=== PATIENT | female | born 1975 | race Caucasian/White ===

== ENCOUNTER 2018-11-27 12:27 | Emergency (ER) | payer BC, OTHER ==
[~2018-11-27] VITALS: Ht 167.6 cm; Wt 59.0 kg
[~2018-11-27 12:27] MED LIST: AZIT-21 PO; B12 INJECTION IM; B12 PO; CALC-196 PO; HYDR1TAB66 PO; LORA1TAB PO; MULT-608 PO
--- OUTSIDE RECORDS SUMMARY | 2018-11-27 12:33 | XMS REPORT ---
Author Author MERRICK AVILA [facility] Address [address] [place] [address] Care Team Providers Care Chief Medical Technologist Name Role Phone MERRICK AVILA Unavailable PROBLEMS Type Condition ICD9-CM Code QNU17-TL Code Onset Dates Condition Status SNOMED Code Problem Cellulitis 682.9 Mar, 0 786576841 Problem CHF (congestive heart failure) 428.0 Jan, 0 29036123 Problem Tobacco use 305.1 Apr, 0 877744240 Problem Unspecified essential hypertension 401.9 0 86791278 Problem Early satiety 780.94 Mar, 0 919933986 Problem Tobacco use Z72.0 Apr, 0 292469945 Problem CHF (congestive heart failure) I50.9 Jan, 0 57120765 Problem 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 Jan, 0 Problem Anastomotic stricture of gastrojejunostomy 997.49 Jan, 0 48367803 Problem Pelvic pain in female 625.9 Sep, 0 832019478 Problem Status post gastric bypass for obesity V45.86 Jul, 0 858032834 Problem Postop check Z09 October, 0 427380031 Problem Cellulitis L03.90 Mar, 0 097668813 Problem Status post gastric bypass for obesity Z98.84 Jul, 0 225729336 Problem Cigarette nicotine dependence, uncomplicated F17.210 Apr, 0 530931656 Problem Deep postoperative wound infection T81.42XA Dec, 0 Problem Deep postoperative wound infection 998.59 Dec, 0 37303974 Problem 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 Dec, 0 603953543 Problem Pleomorphic adenoma of parotid gland 210.2 Dec, 0 626162439 Problem Ovarian torsion 620.5 Sep, 0 33093410 Problem Ovarian torsion N83.519 Sep, 0 98159418 Problem Postop check V67.00 October, 0 344957461 Problem Essential hypertension I10 Active 75210026 Problem Pelvic pain in female R10.2 Sep, 0 006704886 Problem Other chronic pain G89.29 Active 56537795 Problem Early satiety R68.81 Mar, 0 334359592 Problem Unspecified essential hypertension I10 0 04709681 Problem Cigarette nicotine dependence, uncomplicated 305.1 Apr, 0 587643263 Problem Chronic congestive heart failure, unspecified heart failure type I50.9 Active 12340136 Problem Gastric ulcer, unspecified chronicity, unspecified whether gastric ulcer hemorrhage or perforation present K25.9 Active 974293810 Problem Insomnia, unspecified type G47.00 Active [id number] ALLERGIES Substance Reaction Event Type Date Status Solu-Medrol hives Drug Allergy Aug, Active Flovent HFA swelling Drug Allergy Aug, Active servent swelling Non Drug Allergy Aug, Active ENCOUNTERS Encounter Location Date Diagnosis [address] [address] Aug, Essential hypertension I10 ; Gastric ulcer, unspecified chronicity, unspecified whether gastric ulcer hemorrhage or perforation present K25.9 ; Chronic congestive heart failure, unspecified heart failure type I50.9 ; Insomnia, unspecified type G47.00 ; Other chronic pain G89.29 and Low back pain M54.[address] [address] Jul, [address] [address] Jul, [address] [address] Jul, [facility] [address] [facility] [id number] [place] [address] May, [facility] [id number] [place] [address] May, [facility] [id number] [place] [address] May, [facility] [id number] [place] [address] Apr, [facility] [address] [facility] [id number] [place] [address] Dec, IMMUNIZATIONS No Known Immunizations SOCIAL HISTORY Never Assessed REASON FOR VISIT establish care. needs refill medications. [facility] PLAN OF CARE Activity Details Follow Up 4 Weeks with labs Reason: VITAL SIGNS Height 64 in 2018-08-20 Weight 154 lbs 2018-08-20 Temperature 98.6 degrees Fahrenheit 2018-08-20 Heart Rate 78 bpm 2018-08-20 Respiratory Rate 18 2018-08-20 BMI 26.43 kg/m2 2018-08-20 Blood pressure systolic 120 mmHg 2018-08-20 Blood pressure diastolic 80 mmHg 2018-08-20 MEDICATIONS Medication Instructions Dosage Frequency Start Date End Date Duration Status Xanax 1 MG Orally 2 times a day 1 tablet 12h Jul, 28 days Active Cyanocobalamin 1000 MCG/ML INJECT ONE ML INTRAMUSCULARLY EVERY 7 DAYS 28 Active Klor-Con 10 10 MEQ Orally daily on days that you take lasix 1 tablet with food 30 day(s) Active Tramadol HCl 50 MG Orally 3 times a day as needed 1 tablet Aug, 28 days Active Furosemide 40 MG Orally Once a day as needesd 1 tablet 30 day(s) Active Dicyclomine HCl 20 MG Orally 3 times a day 1 tablet 8h 30 days Active Sucralfate 1 GM Orally 4 times a day as needed 1 tablet on an empty stomach 30 day(s) Active RESULTS No Results PROCEDURES No Known procedures INSTRUCTIONS MEDICATIONS ADMINISTERED No Known Medications MEDICAL (GENERAL) HISTORY Type Description Date Medical History Hypertension Medical History CHF (congestive heart failure) Medical History pleomorphic adenoma of parotid gland Hospitalization History surgeries Hospitalization History pneumonia
[2018-11-27] MEDS ORDERED: FAMOTIDINE 20MG/2ML IV (PEPCID) IV STA (13:23)
[2018-11-27] MEDS ORDERED: LACTATED RINGERS 1,000 ML IV STA (13:23)
[2018-11-27] MEDS ORDERED: ANTACID SUSP 30 ML UDC (MYLANTA) PO ONE (13:30)
[2018-11-27] MEDS ORDERED: LIDOCAINE 2% VISCOUS 15 ML UDC PO ONE (13:30)
[2018-11-27 13:42] LABS: BASOPHILS % (AUTO) 1 % (0-10); EOSINOPHILS # (AUTO) 0.3 10^3/uL (0.0-0.3); EOSINOPHILS % (AUTO) 4 % (0-10); HEMATOCRIT 39 % (35-52); HEMOGLOBIN 11.8 G/DL (11.5-16.0); LYMPHOCYTES # (AUTO) 1.8 X 10^3 (1.0-4.0); LYMPHOCYTES % (AUTO) 22 % (12-44); MEAN CORPUSCULAR HEMOGLOBIN 25 PG (25-34); MEAN CORPUSCULAR HGB CONC 31 G/DL (32-36); MEAN CORPUSCULAR VOLUME 83 FL (80-99); MEAN PLATELET VOLUME 11.7 FL (7.4-10.4); MONOCYTES # (AUTO) 0.5 X 10^3 (0.0-1.0); MONOCYTES % (AUTO) 6 % (0-12); NEUTROPHILS # (AUTO) 5.5 X 10^3 (1.8-7.8); NEUTROPHILS % (AUTO) 68 % (42-75); PLATELET COUNT 248 10^3/uL (130-400); RED CELL DISTRIBUTION WIDTH 14.5 % (10.0-14.5); WHITE BLOOD COUNT 8.1 10^3/uL (4.3-11.0)
[2018-11-27 13:55] LABS: ALANINE AMINOTRANSFERASE 12 U/L (0-55); ALBUMIN 3.9 GM/DL (3.2-4.5); ALKALINE PHOSPHATASE 94 U/L (40-136); BILIRUBIN,TOTAL 0.2 MG/DL (0.1-1.0); BUN/CREATININE RATIO 11; CALCIUM 9.2 MG/DL (8.5-10.1); CARBON DIOXIDE 25 MMOL/L (21-32); CHLORIDE 108 MMOL/L (98-107); GFR ESTIMATED > 60; GLUCOSE 93 MG/DL (70-105); MAGNESIUM 2.2 MG/DL (1.8-2.4); POTASSIUM 4.3 MMOL/L (3.6-5.0); SODIUM 143 MMOL/L (135-145); TOTAL PROTEIN 6.9 GM/DL (6.4-8.2)
[2018-11-27 14:38] LABS: BILIRUBIN,URINE NEGATIVE (NEGATIVE); CLARITY,URINE CLEAR; COLOR,URINE YELLOW; GLUCOSE, URINE (UA) NEGATIVE (NEGATIVE); KETONES,URINE NEGATIVE (NEGATIVE); LEUKOCYTE ESTERASE ,URINE NEGATIVE (NEGATIVE); NITRITE,URINE NEGATIVE (NEGATIVE); PH,URINE 7 (5-9); PROTEIN,URINE NEGATIVE (NEGATIVE); UROBILINOGEN,URINE NORMAL (NORMAL)
[2018-11-27 14:49] LABS: BACTERIA,URINE NEGATIVE /HPF; SQUAMOUS EPITHELIAL CELL,UR 0-2 /HPF
[2018-11-27] MEDS ORDERED: NS 100 ML (IVPB) BAG IV ONE (15:15)
[2018-11-27] MEDS ORDERED: IOHEXOL 350 MG/ML 100 ML (OMNIPAQUE 350) VIAL IV ONE (15:15)
[2018-11-27] MEDS ORDERED: HOLD METFORMIN - RECEIVED CONTRAST 20 ML VIAL IV SCH (15:15)
--- NOTE | 2018-11-27 16:27 | Diagnostic Imaging Report ---
PROCEDURE: CT abdomen and pelvis with contrast. TECHNIQUE: Multiple contiguous axial images were obtained through the abdomen and pelvis after administration of intravenous contrast. Auto Exposure Controls were utilized during the CT exam to meet ALARA standards for radiation dose reduction. INDICATION: Abdominal pain. Nausea and vomiting. History of gastric bypass. COMPARISON: CT abdomen and pelvis without and with IV contrast 01/27/2011. FINDINGS: Lung bases are clear. Cholecystectomy. Postoperative findings of gastric bypass. Fatty infiltration along the falciform ligament. The pancreas, spleen, adrenals, kidneys, collecting systems and bladder are negative. Normal appendix. Moderate colonic diverticulosis. No evidence of active diverticulitis. No free intraperitoneal air or fluid. No lymphadenopathy. No evidence of bowel obstruction. Hysterectomy. Moderate atherosclerotic calcifications including the normal caliber abdominal aorta. Chronic L5 pars defects. No acute osseous findings. IMPRESSION: 1. No acute CT findings in the abdomen or pelvis. 2. Moderate colonic diverticulosis without evidence of active diverticulitis. 3. Chronic L5 pars defects. No acute osseous findings. Dictated by: Dictated on workstation # [id number]
--- NOTE | 2018-11-27 16:34 | ED Abdominal Pain ---
General Chief Complaint: Abdominal/GI Problems Stated Complaint: THROWING UP BLOOD Nursing Triage Note: Pt to ED with multiple complaints. Pt reports having gastric bypass 11 years ago and is concerned there may be an intestinal stricture or blockage. Pt also concerned about heart issues as pt is "just not feeling right." Pt c/o fatigue, cold chills, abdominal pain, nausea, bloating. Pt reports vomiting blood three times today. Pt reports losing 50 pounds in the last four months. Pt stated, "When I drink if feels like it's leaking inside." Sepsis Screen: No Definite Risk Source of Information: Patient Exam Limitations: No Limitations History of Present Illness Date Seen by Provider: Nov 27, 2018 Time Seen by Provider: 13:20 Initial Comments Here with report of abdominal pain and not being able to eat or drink anything. She reports 50 pound weight loss in the last several months. Reports that every time she eats or drinks anything including sips of water, she vomits.She had some vomiting of blood today. States that she feels out of energy and just not well. Does have history of gastric bypass a little over 10 years ago. She does take medicines for stomach problems including Carafate and a PPI. She also takes Zantac. Does not have local surgeon currently on her previous bariatric doctor has retired. Denies fever or chills. States that she believes her stools are a little bit darker and has been having diarrhea. She is on probiotics. Timing/Duration: 1 Week (getting worse over the last week), Other (23 months) Severity/Quality: Moderate, Burning, Cramping Location: Epigastric Radiation: No Radiation Activities at Onset: None Modifying Factors: Worsens With Eating Associated Symptoms: No Back Pain, No Chest Pain, No Fever/Chills; Fatigue, Heartburn, Nausea/Vomiting; No Shortness of Air; Weakness Allergies and Home Medications Allergies Coded Allergies: NKANo Known Allergies (Verified Allergy, Unknown, 01/16/07) fluticasone propionate (Unverified Allergy, Unknown, difficulty breathing, 11/27/18) salmeterol xinafoate (Unverified Allergy, Unknown, difficulty breathing, 11/27/18) Home Medications Azithromycin 250 Mg Tab, 0 PO Z-MYKE, (Reported) Calcium Carbonate/Vitamin D3 1 Each Tablet, 2 TAB PO BID, (Reported) Hydrocodone Bit/Acetaminophen 1 Each Tablet, 1 EACH PO Q4 PRN, (Reported) Lorazepam 1 Mg Tablet, 1 EACH PO Q6 PRN, (Reported) Multivitamins 1 Tab Tablet, 1 TAB PO DAILY, (Reported) [B12 Injection] , IM Q3 WEEKS, (Reported) [B12] , 1 TAB PO DAILY, (Reported) Patient Home Medication List Home Medication List Reviewed: Yes Review of Systems Review of Systems Constitutional: see HPI; No chills, No fever EENTM: No Symptoms Reported Respiratory: No Symptoms Reported Cardiovascular: Denies Chest Pain, Denies Edema Gastrointestinal: Abdominal Pain, Diarrhea, Nausea, Vomiting, Other (blood- streaked vomit) Genitourinary: No Symptoms Reported Musculoskeletal: no symptoms reported Skin: no symptoms reported Psychiatric/Neurological: No Symptoms Reported All Other Systems Reviewed Negative Unless Noted: Yes Past Jrkmdry-Obojmg-Ecypyu Hx Past Med/Social Hx: Reviewed Nursing Past Med/Soc Hx Patient Social History Alcohol Use: Denies Use Recreational Drug Use: No Smoking Status: Current Everyday Smoker Type Used: Cigarettes 2nd Hand Smoke Exposure: Yes Recent Foreign Travel: No Contact w/Someone Who Travel: No Recent Infectious Disease Expo: No Recent Hopitalizations: Yes Past Medical History Surgeries: Yes (FOREIGN BODY (GLASS) REMOVED FROM FACE, gastric bypass, non- cancerous tumor) Respiratory: Yes Cardiac: Yes (chf) Neurological: No Reproductive Disorders: No Gastrointestinal: Yes (GASTRIC BYPASS 2008) Musculoskeletal: Yes (RIGHT HIP PAIN) Endocrine: No Psychosocial: No Blood Disorders: No Family Medical History Reviewed Nursing Family Hx Physical Exam Vital Signs Vital Signs - First Documented 11/27/18 12:42 Temp 97.9 Pulse 85 Resp 20 B/P (MAP) 117/71 (86) Pulse Ox 98 O2 Delivery Room Air Capillary Refill : Less Than 3 Seconds Height/Weight/BMI Height: 5'6.00" Weight: 130lbs. oz. 58.670309xf; BMI Method:Stated General Appearance: WD/WN, no apparent distress HEENT: PERRL/EOMI, pharynx normal Neck: full range of motion, supple Respiratory: lungs clear, normal breath sounds Cardiovascular: regular rate, rhythm, no murmur Gastrointestinal: soft; No guarding, No rebound; tenderness (epigastric) Genital/Rectal: heme negative stool Extremities: normal range of motion, non-tender, normal inspection Back: normal inspection, no CVA tenderness, no vertebral tenderness Neurologic/Psychiatric: alert, oriented x 3 Skin: normal color, warm/dry Progress/Results/Core Measures Results/Orders Lab Results Laboratory Tests Test 11/27/18 12:55 11/27/18 14:30 Range/Units White Blood Count 8.1 4.3-11.0 10^3/uL Red Blood Count 4.65 4.35-5.85 10^6/uL Hemoglobin 11.8 11.5-16.0 G/DL Hematocrit 39 35-52 % Mean Corpuscular Volume 83 80-99 FL Mean Corpuscular Hemoglobin 25 25-34 PG Mean Corpuscular Hemoglobin Concent 31 L 32-36 G/DL Red Cell Distribution Width 14.5 10.0-14.5 % Platelet Count 248 130-400 10^3/uL Mean Platelet Volume 11.7 H 7.4-10.4 FL Neutrophils (%) (Auto) 68 42-75 % Lymphocytes (%) (Auto) 22 12-44 % Monocytes (%) (Auto) 6 0-12 % Eosinophils (%) (Auto) 4 0-10 % Basophils (%) (Auto) 1 0-10 % Neutrophils # (Auto) 5.5 1.8-7.8 X 10^3 Lymphocytes # (Auto) 1.8 1.0-4.0 X 10^3 Monocytes # (Auto) 0.5 0.0-1.0 X 10^3 Eosinophils # (Auto) 0.3 0.0-0.3 10^3/uL Basophils # (Auto) 0.0 0.0-0.1 10^3/uL Sodium Level 143 135-145 MMOL/L Potassium Level 4.3 3.6-5.0 MMOL/L Chloride Level 108 H 98-107 MMOL/L Carbon Dioxide Level 25 21-32 MMOL/L Anion Gap 10 5-14 MMOL/L Blood Urea Nitrogen 9 7-18 MG/DL Creatinine 0.80 0.60-1.30 MG/DL Estimat Glomerular Filtration Rate > 60 BUN/Creatinine Ratio 11 Glucose Level 93 70-105 MG/DL Calcium Level 9.2 8.5-10.1 MG/DL Corrected Calcium 9.3 8.5-10.1 MG/DL Magnesium Level 2.2 1.8-2.4 MG/DL Total Bilirubin 0.2 0.1-1.0 MG/DL Aspartate Amino Transf (AST/SGOT) 22 5-34 U/L Alanine Aminotransferase (ALT/SGPT) 12 0-55 U/L Alkaline Phosphatase 94 40-136 U/L Total Protein 6.9 6.4-8.2 GM/DL Albumin 3.9 3.2-4.5 GM/DL Urine Color YELLOW Urine Clarity CLEAR Urine pH 7 5-9 Urine Specific [place] 1.010 L 1.016-1.022 Urine Protein NEGATIVE NEGATIVE Urine Glucose (UA) NEGATIVE NEGATIVE Urine Ketones NEGATIVE NEGATIVE Urine Nitrite NEGATIVE NEGATIVE Urine Bilirubin NEGATIVE NEGATIVE Urine Urobilinogen NORMAL NORMAL MG/DL Urine Leukocyte Esterase NEGATIVE NEGATIVE Urine RBC (Auto) NEGATIVE NEGATIVE Urine RBC NONE /HPF Urine WBC NONE /HPF Urine Squamous Epithelial Cells 0-2 /HPF Urine Crystals NONE /LPF Urine Bacteria NEGATIVE /HPF Urine Casts NONE /LPF Urine Mucus SMALL H /LPF Urine Culture Indicated NO My Orders Orders - BRAYDON MACK MD Cbc With Automated Diff (11/27/18 13:23) Comprehensive Metabolic Panel (11/27/18 13:23) Magnesium (11/27/18 13:23) Ua Culture If Indicated (11/27/18 13:23) Type And Screen (11/27/18 13:23) Fecal Occult Bedside (11/27/18 13:23) Lidocaine 2% Viscous 15 Ml (Xylocaine Vi (11/27/18 13:30) Antacid Suspension (Mylanta Suspension (11/27/18 13:30) Lactated Ringers (Lr 1000 Ml Iv Solution (11/27/18 13:23) Famotidine Injection (Pepcid Injection) (11/27/18 13:23) Ct Abdomen/Pelvis W (11/27/18 15:06) Iohexol Injection (Omnipaque 350 Mg/Ml 1 (11/27/18 15:15) Received Contrast (Hold Metformin- Contr (11/27/18 15:15) Ns (Ivpb) (Sodium Chloride 0.9% Ivpb Bag (11/27/18 15:15) Medications Given in ED Current Medications Medications Dose Ordered Sig/Zachery Route Start Time Stop Time Status Last Admin Dose Admin Al Hydrox/Mg Hydrox/Simethicone 30 ml ONCE ONCE PO 11/27/18 13:30 11/27/18 13:31 DC 11/27/18 13:47 30 ML Lidocaine HCl 15 ml ONCE ONCE PO 11/27/18 13:30 11/27/18 13:31 DC 11/27/18 13:47 15 ML Vital Signs/I&O 11/27/18 12:42 Temp 97.9 Pulse 85 Resp 20 B/P (MAP) 117/71 (86) Pulse Ox 98 O2 Delivery Room Air Blood Pressure Mean: 86 Fecal Occult: Negative Progress Progress Note : Progress Note Seen and evaluated. IV, labs, UA, normal saline 1 L bolus, Pepcid 20 mg IV and GI cocktail ordered. Monitor patient. CT abdomen pelvis ordered. 1610: CT complete pending results. Labs and urine did not show any significant findings at all. Patient did get some relief with GI cocktail. She is started have a little bit more pain down requested her Zantac which was authorized. Monitor patient. 1643: I did discuss causes the case with Dr. Rodriguez. He'll see the patient in office on Sunday. I will send a copy of the chart and read I did review the discussion with Dr. Rodriguez with the patient and she agrees. We will initiate Protonix as she says that works better for her than omeprazole. Also write prescription for ondansetron. Discharged home with return precautions. Patient verbalize understanding instructions and agreement with plan. Diagnostic Imaging Diagonstic Imaging: CT Plain Films/CT/US/NM/MRI: abdomen, pelvis Comments [facility]. [place], [place] NAME: MERAADRIANA CHIRINOS Minh [facility] REC#: [id number] PT STATUS: REG ER : 1975 PHYSICIAN: BRAYDON MACK MD ADMIT DATE: 11/27/18/ER Draft Date of Exam:11/27/18 CT ABDOMEN/PELVIS W PROCEDURE: CT abdomen and pelvis with contrast. TECHNIQUE: Multiple contiguous axial images were obtained through the abdomen and pelvis after administration of intravenous contrast. Auto Exposure Controls were utilized during the CT exam to meet ALARA standards for radiation dose reduction. INDICATION: Abdominal pain. Nausea and vomiting. History of gastric bypass. COMPARISON: CT abdomen and pelvis without and with IV contrast 01/27/2011. FINDINGS: Lung bases are clear. Cholecystectomy. Postoperative findings of gastric bypass. Fatty infiltration along the falciform ligament. The pancreas, spleen, adrenals, kidneys, collecting systems and bladder are negative. Normal appendix. Moderate colonic diverticulosis. No evidence of active diverticulitis. No free intraperitoneal air or fluid. No lymphadenopathy. No evidence of bowel obstruction. Hysterectomy. Moderate atherosclerotic calcifications including the normal caliber abdominal aorta. Chronic L5 pars defects. No acute osseous findings. IMPRESSION: 1. No acute CT findings in the abdomen or pelvis. 2. Moderate colonic diverticulosis without evidence of active diverticulitis. 3. Chronic L5 pars defects. No acute osseous findings. Dictated on workstation # [id number] Dict: 11/27/18 1608 Trans: 11/27/18 1626 CVB [id number] Interpreted by: SIMRAN VU MD Electronically signed by: Departure Impression Primary Impression: Epigastric abdominal pain Additional Impression: Nausea and vomiting Qualified Codes: R11.2 - Nausea with vomiting, unspecified Disposition: 01 HOME, SELF-CARE Condition: Improved Departure-Patient Inst. Decision time for Depature: 16:45 Referrals: LOBITO RODRIGUEZ MD NO,LOCAL PHYSICIAN (PCP) Primary Care Physician Patient Instructions: Acute Abdomen (Belly Pain), Adult (DC), Nausea and Vomiting, Adult Add. Discharge Instructions: All discharge instructions reviewed with patient and/or family. Voiced understanding. Take medications as directed. Follow-up with Dr. Rodriguez in his office at 1 PM on 11/29/18. Return for worse pain, fever, vomiting, weakness, breathing problems or other concerns as needed. Is very important that he quit smoking. Continue your protein shakes and other nutritional shakes as needed to keep fluids and nutrition going. Scripts Pantoprazole Sodium (Pantoprazole Sodium) 40 Mg Tablet. 40 MG PO DAILY, #30 TAB 0 Refills Prov: BRAYDON MACK MD 11/27/18 Ondansetron (Ondansetron Odt) 4 Mg Tab.rapdis 4 MG PO Q6H PRN for NAUSEA/VOMITING, #20 TAB 0 Refills Prov: BRAYDON MACK MD 11/27/18 Work/School Note: Work Release Form Date Seen in the Emergency Department: Nov 27, 2018 Return to Work: Nov 28, 2018 Restrictions: No Restrictions Other Restrictions Listed Below: Has follow-up appointment with Dr. Rodriguez on 11/29/18 at 1 PM Copy Copies To 1: LOBITO RODRIGUEZ MD, TIMOTHY D MD Nov 27, 2018 16:34
[2018-11-27] MEDS ORDERED: ONDA4TAB11 PO (16:48)
[2018-11-27] MEDS ORDERED: PANT40TA3 PO (16:48)
[2018-11-27 17:05] VITALS: BP 129/65
== END 2018-11-27 17:05 | disposition home or self-care (01) ==
LOC: EDUNIT# 12:27 → ER 12:29
DX: R10.13 Epigastric pain (principal); R11.2 Nausea with vomiting, unspecified; I50.9 Heart failure, unspecified; F17.210 Nicotine dependence, cigarettes, uncomplicated; Z88.8 Allergy status to other drugs, medicaments and biological substances; Z98.84 Bariatric surgery status
CPT/HCPCS: 36415; 74177; 80053; 81000; 83735; 85025; 86850; 86900; 86901; 96361; 96374

== ENCOUNTER 2018-12-02 13:09 | Day surgery (SDC) | payer BC ==
[~2018-12-02] VITALS: Ht 167.6 cm; Wt 63.0 kg
[~2018-12-02 13:09] MED LIST changes: +ONDA4TAB11 PO; +PANT40TA3 PO
[2018-12-02] MEDS ORDERED: LACTATED RINGERS 1,000 ML IV ONE (13:12)
[2018-12-02 13:30] VITALS: BP 120/72
[2018-12-02] MEDS ORDERED: PROPOFOL INJECTION 50 ML IV ONE (13:31)
[2018-12-02] MEDS ORDERED: MIDAZOLAM 5 MG/5 ML (VERSED) VIAL ONE (13:31)
[2018-12-02] MEDS ORDERED: HURRICAINE EXT TUBE (BENZOCAINE) ONE ×2 (13:34→13:41)
[2018-12-02] MEDS ORDERED: LACTATED RINGERS 1,000 ML IV STA (13:35)
[2018-12-02] MEDS ORDERED: LIDOCAINE JELLY 2% 6 ML SYRINGE ONE (13:41)
[2018-12-02] MEDS ORDERED: HURRICAINE EXT TUBE (BENZOCAINE) XX PRN (13:45)
[2018-12-02] MEDS ORDERED: LIDOCAINE JELLY 2% 6 ML SYRINGE MM PRN (13:45)
[2018-12-02] MEDS ORDERED: TRAM50TA2 PO (13:54)
[2018-12-02] MEDS ORDERED: SUCR1TAB36 PO (13:54)
[2018-12-02] MEDS ORDERED: POTA-51 PO (13:54)
[2018-12-02] MEDS ORDERED: RANI150T46 PO (13:54)
[2018-12-02] MEDS ORDERED: ALPR0.5T PO (13:54)
[2018-12-02] MEDS ORDERED: FURO-125 PO (13:54)
[2018-12-02 14:35] VITALS: BP 116/70
--- NOTE | 2018-12-02 15:00 | Anesthesia-General Post-Op ---
MAC Patient Condition Mental Status/LOC: Same as Preop Cardiovascular: Satisfactory Nausea/Vomiting: Absent Respiratory: Satisfactory Pain: Controlled Complications: Absent Post Op Complications Complications None Follow Up Care/Instructions Patient Instructions None needed. Anesthesiology Discharge Order Discharge Order Patient is doing well, no complaints, stable vital signs, no apparent adverse anesthesia problems. No complications reported per nursing. LAWSON DAUGHERTY CRNA Dec 02, 2018 15:00
--- NOTE | 2018-12-02 15:08 | Conscious Sedation/ASA ---
Conscious Sedation Pre-Proced Time 13:30 ASA Score 2 For ASA 3 and 4: Consider anesthesia and medical clearance. Also, for patients with a history of failed moderate sedation consider anesthesia. Airway Lungs Heart ASA score ASA 1: a normal healthy patient ASA 2: a patient with a mild systemic disease (mid diabetes, controlled hypertension, obesity ASA 3: a patient with a severe systemic disease that limits activity (angina, COPD, prior Myocardial infarction) ASA 4: a patient with an incapacitating disease that is a constant threat to life (CHF, renal failure) ASA 5: a moribund patient not expected to survive 24 hrs. (ruptured aneurysm) ASA 6: a declared brain- patient whose organs are being harvested. For emergent operations, add the letter E after the classification Mallampati Classification Grade 2 Sedation Plan Analgesia, Amnesia, Plan communicated to team members, Discussed options with patient/fam, Discussed risks with patient/fam The patient is an appropriate candidate to undergo the planned procedure, sedation, and anesthesia. The patient immediately re-assessed prior to indication. LOBITO REYNOLDS MD Dec 02, 2018 15:08
[2018-12-02 15:10] VITALS: BP 134/87
--- NOTE | 2018-12-02 15:10 | Progress Note-Pre Operative ---
Pre-Operative Progress Note H&P Reviewed The H&P was reviewed, patient examined and no changes noted. Date Seen by Provider: Dec 02, 2018 Time Seen by Provider: 13:30 Date H&P Reviewed: Dec 02, 2018 Time H&P Reviewed: 13:30 Pre-Operative Diagnosis: dysphagia s/p luanne-en-Y bypass LOBITO REYNOLDS MD Dec 02, 2018 15:10
[2018-12-02 15:11] VITALS: BP 134/87
--- NOTE | 2018-12-02 15:14 | Progress Note-Post Operative ---
Post-Operative Progess Note Surgeon (s)/Healthcare Economics Consultant (s) Surgeon LOBITO REYNOLDS MD Healthcare Economics Consultant: none Pre-Operative Diagnosis dysphagia s/p luanne-en-Y bypass Post-Operative Diagnosis reflux esophagitis(stage 2), small HH(2cm), severe gastro-jejunal stricture, marginal ulcer, normal luanne limb. Procedure & Operative Findings Date of Procedure 12/02/18 Procedure Performed/Findings EGD Anesthesia Type MAC Estimated Blood Loss Estimated blood loss (mL): minimal Specimens/Packing Specimens Removed none LOBITO REYNOLDS MD Dec 02, 2018 15:14
--- NOTE | 2018-12-02 15:16 | Discharge Inst-Surgical ---
D/C Lap Instructions-RODOLFO Follow Up Appt in 2 weeks Activity as tolerated Avoid Alcohol, Caffeine, Spicy Rhodes and Acid foods. Drink 64 fluid oz or more of fluids per day. Symptoms to Report: Fever over 101 degree F, Nausea/Vomiting If any problems/questions: Contact your physician or go to Emergency Room LOBITO REYNOLDS MD Dec 02, 2018 15:16
--- NOTE | 2018-12-02 20:44 | OPERATIVE REPORT ---
DATE OF SERVICE: 12/02/2018 ATTENDING PRIMARY MACHINIST HELPER: Zakiya Lockwood APRN. PREOPERATIVE DIAGNOSIS: Dysphagia status post Michelle-en-Y gastric bypass in 2008. 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 PROCEDURE PERFORMED: Esophagogastroduodenoscopy. SURGEON: Lobito Reynolds MD. ANESTHESIA: Monitored anesthesia care. ESTIMATED BLOOD LOSS: Minimal. FINDINGS: As above in the postop. DISPOSITION: The patient tolerated the procedure well. INDICATIONS: The patient is a 43-year-old female, who presented to the Emergency Department with abdominal pain, nausea and vomiting. She reports that she has lost approximately 50 pounds over the past year whereas before she had been previously maintaining her weight. She is status post Michelle-en-Y gastric bypass in 2008. She reports that she has had difficulty with liquids with solids and then eventually with liquids. She was seen by General Surgery in approximately 8 months ago where an EGD was performed and was found to have a stricture. She again reports worsening feeling and fatigued. She also did develop an episode of hematemesis on the day of presentation to the Emergency Department. Her preoperative weight was 359 pounds. She is now around the mid 130s, 5 feet 5 and a body mass index of 22.7. DESCRIPTION OF PROCEDURE: The patient was brought to the endoscopy suite, laid in left lateral decubitus position with the head slightly elevated. After adequate IV pain and sedating medications and monitored anesthesia care, the mouthpiece was applied. Endoscope was placed in the mouth, visualizing the pharynx and hypopharyngeal region. Vocal cords, epiglottis and vallecula identified and appeared to be normal. The endoscope was gently intubated in the esophageal opening and esophagus was insufflated. The endoscope was then advanced through the first, second and third portion of the esophagus at the level of the GE junction, a reflux esophagitis, stage II identified. There were no ulcers or strictures identified in this region. The endoscope was then advanced into the gastric pouch where a normal-sized gastric pouch was identified; however, there was a very severe stricture of the gastrojejunal anastomosis. The endoscope was then retroflexed, visualizing a small hiatal hernia approximately 2.5 cm in size. We were unable to advance the standard gastroscope through the stricture. This endoscope was then removed and the diagnostic gastroscope was in place, which is significantly smaller in luminal diameter. The endoscope was then advanced through the stricture where an active or acute ulcer was identified, which was small, approximately 4 mm in size. The endoscope was then advanced through region into the jejunal anastomosis, which was normal in appearance and caliber. The endoscope was then slowly withdrawn while taking a second look and suctioning residual air with no additional findings. The patient tolerated the procedure well. At this time, she does have a very tight stricture, which there is a current contraindication to dilate due to the acute ulcer. We will recommend continued medical management for now and get her a daily regimen of liquids of at least 64 fluid ounces daily three small increments as well as supplementation to liquid form. Due to the significance of the gastrojejunal stricture, more than likely she will need to have this area revised and we will send her to the appropriate bariatric surgery that does do revisional surgery for Michelle-en-Y gastric bypass. Job ID: [id number] DocumentID: [id number] Dictated Date: 12/02/2018 14:33:29 Internet Ecommerce Specialist Date: 12/02/2018 20:44:23 Dictated By: LOBITO REYNOLDS MD MTDD
== END 2018-12-02 15:24 | disposition home or self-care (01) ==
LOC: ENDO 13:09
PROVIDERS: ATTEND Surgery
DX: K21.0 Gastro-esophageal reflux disease with esophagitis (principal); K44.9 Diaphragmatic hernia without obstruction or gangrene; K25.3 Acute gastric ulcer without hemorrhage or perforation; K31.89 Other diseases of stomach and duodenum; K91.89 Other postprocedural complications and disorders of digestive system; I11.0 Hypertensive heart disease with heart failure; I50.9 Heart failure, unspecified; F17.210 Nicotine dependence, cigarettes, uncomplicated; Z98.1 Arthrodesis status; Z79.899 Other long term (current) drug therapy; Z80.0 Family history of malignant neoplasm of digestive organs; Z98.84 Bariatric surgery status

== ENCOUNTER → 2022-04-27 | Outpatient (CLI) | payer BC ==
[~2022-04-27] MED LIST changes: +ALPR0.5T PO; +CATHETER FLUSH 10 ML SYR IV PRN; +FURO-125 PO; +HOLD METFORMIN - RECEIVED CONTRAST 20 ML VIAL IV SCH; +IOHEXOL 350 MG/ML 100 ML (OMNIPAQUE 350) VIAL IV ONE; +NS 100 ML (IVPB) BAG IV ONE; -PANT40TA3 PO; +PANT40TA52 PO; +POTA-51 PO; +RANI-613 PO; +SUCR1TAB36 PO; +TRM50T PO
--- NOTE | 2022-04-27 14:55 | Diagnostic Imaging Report ---
PROCEDURE: CT head with and without contrast. TECHNIQUE: Multiple contiguous axial images were obtained through the brain before and after the administration of intravenous contrast. Auto Exposure Controls were utilized during the CT exam to meet ALARA standards for radiation dose reduction. INDICATION: Intermittent migraine headaches for two weeks and nausea. COMPARISON: No prior studies are available for comparison. FINDINGS: The ventricles and sulci are within normal limits. No sulcal effacement or midline shift is identified. No acute intra-axial or extra-axial hemorrhage is detected. No abnormal enhancement following contrast administration is identified. Cisterns are patent. The visualized paranasal sinuses are clear apart from mucosal thickening involving left-sided ethmoid air cells. IMPRESSION: Essentially unremarkable pre and post contrast CT of the brain. Dictated by: Dictated on workstation # [id number]
== END ==
LOC: RAD FS 13:34
PROVIDERS: ATTEND Nurse Practitioner Family
DX: G43.909 Migraine, unspecified, not intractable, without status migrainosus (principal)
CPT/HCPCS: 70470; Q9967

== ENCOUNTER → 2022-05-04 | Outpatient (CLI) | payer BC ==
--- NOTE | 2022-05-04 11:56 | Diagnostic Imaging Report ---
PROCEDURE: CT maxillofacial with and without contrast. TECHNIQUE: CT imaging of the maxillofacial structures before and after the administration of intravenous contrast with reformatted images. Auto Exposure Controls were utilized during the CT exam to meet ALARA standards for radiation dose reduction. INDICATION: History of parotiditis. COMPARISON: None. FINDINGS: There is diffuse enlargement of the right parotid gland compared to the contralateral side. The left parotid tail and deep component of the left parotid gland appears to have been resected. No discrete parotid mass or fluid collections identified. No sialoliths. No ductal dilatation. The bilateral submandibular glands are negative. The floor of the mouth, tongue base, epiglottis and retropharyngeal space are unremarkable. Normal alignment of the temporomandibular joints. No fractures. The paranasal sinuses are clear. The mastoids and middle ears are clear. The orbits are negative. Visualized intracranial contents demonstrate no acute findings. IMPRESSION: 1. Diffuse enlargement of the right parotid gland without a focal mass, fluid collection or sialolith identified. No ductal dilatation. There is also no significant associated inflammatory change. Findings are nonspecific and could be infectious, inflammatory, new mediated, less likely neoplastic. 2. Probable partial resection of the left parotid gland including the tail and deep component. Dictated by: Dictated on workstation # [id number]
== END ==
LOC: RAD FS 10:39
PROVIDERS: ATTEND Nurse Practitioner Family
DX: K11.9 Disease of salivary gland, unspecified (principal); Z87.19 Personal history of other diseases of the digestive system; Z87.898 Personal history of other specified conditions
CPT/HCPCS: 70488; Q9967